=== PATIENT | male | born 1985 | race Caucasian/White ===

== ENCOUNTER 2021-04-29 11:35 | Inpatient (IN) | payer MEDICAID, SELFPAY ==
[2021-04-29 11:41] VITALS: BP 139/84; PULSE 134; RESP 134; O2SAT 95; BMI 27.3
--- NOTE | 2021-04-29 11:46 | ECG_ITS ---
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 Measurements Intervals [place] Rate: 128 P: 60 FL: 132 QRS: 1 QRSD: 83 T: 71 QT: 275 QTc: 402 Interpretive Statements SINUS TACHYCARDIA No previous ECG available for comparison Electronically Signed On 04-29-2021 16:00:30 CDT by Trevor Monreal M.D. [id number]
[2021-04-29] MEDS: LORazepam 2 mg/mL INJ 1 mL IM (11:53)
[2021-04-29] MEDS: nicotine 21 mg Patch 1 PATCH TRANSDERMA (11:53)
[2021-04-29 11:58] VITALS: O2SAT 96
--- NOTE | 2021-04-29 12:00 | W.ED.PSYCH ---
HPI - Psych General: Chief Complaint: Psychiatric Symptoms Stated Complaint: SI; ANXIETY Time Seen by Provider: 04/29/21 11:42 Source: patient and EMS Mode of arrival: EMS History of Present Illness: HPI Narrative: Patient presents with agitation and altered mental status. He was just discharged today from an alcohol drug rehab facility and was found altered by either police or EMS. He is agitated and shaky and tachycardic and diaphoretic and I suspect he likely has some sort of substance on board. He told EMS that he was suicidal and wanted to throw himself in front of a car. He tells me that he is only suicidal because he cannot figure out a way to get home. However he does not know the year or the town that he is in Review of Systems General: Reports: ROS unobtainable due to mental status PFSH ED PFSH: Social History (Updated 04/26/21 @ 11:15 by Lm Carrillo LPN) Smoking and tobacco status: current every day smoker cigarettes Quit status (tobacco): not considering quitting Second hand smoke exposure: Yes Alcohol intake: former Desire information about alcohol rehabilitation?: No Desire information about substance/drug rehabilitation?: No Physical Exam HENMT: COMMON NORMALS: normocephalic HEAD & SCALP: normal to inspection and normocephalic Resp: COMMON NORMALS: normal respiratory effort Cardio: RATE: tachycardic GI: COMMON NORMALS: Normal to inspection, nondistended, normoactive bowel sounds present, Soft to palpation, non-tender, No hepatosplenomegaly present, no masses and no bruits PALPATION: Yes Soft to palpation and Yes No hepatosplenomegaly present Neuro: COMMON NORMALS: CN's II-XII intact bilaterally, moves all extremities, no focal motor deficits and no sensory deficits noted Psych: APPEARANCE: Yes disheveled ATTITUDE: Yes paranoid and Yes uncooperative SPEECH: Yes excessive, Yes loud and Yes Pressured speech present MOOD & AFFECT: Yes anxious THOUGHT PROCESS: disorganized THOUGHT CONTENT: Yes Suicidality present INSIGHT: Poor insight present (Psych) JUDGEMENT: Poor judgement present (Psych) Course Vital Signs: Vital signs: Vital Signs Pulse Rate 65 04/29/21 11:58 Respiratory Rate 19 H 04/29/21 11:58 Blood Pressure 97/54 04/29/21 11:58 Pulse Oximetry 98 05/30/21 11:58 MDM - Psych MDM Narrative: Medical decision making narrative: Patient with acute psychosis and suicidal ideation. Discussed with Dr. Foster. Will admit patient to the psych unit for further evaluation and treatment. Lab Data: Labs: Lab Results 04/29/21 04/29/21 Range/Units 12:40 12:40 WBC 9.4 (4.0-10.0) 10^3/ uL RBC 5.13 (4.1-5.3) 10^6/u L Hgb 15.2 (11.7-16.6) g/dL Hct 44.2 (42.0-52.0) % MCV 86.2 (80-94) fL MCH 29.6 (28.0-34.0) pg MCHC 34.4 (30.0-36.0) g/dL RDW 12.8 (12.1-15.1) % Plt Count 303 (130-400) 10^3/c mm MPV 8.6 (7.4-10.4) fL Neut % (Auto) 66.7 % Lymph % (Auto) 22.0 % Gilliam % (Auto) 6.8 % Eos % (Auto) 3.2 % Baso % (Auto) 0.6 % Neut # (Auto) 6.23 (1.8-7.7) 10^3/u L Lymph # (Auto) 2.1 (0.8-4.8) 10^3/u L Gilliam # (Auto) 0.6 (0.2-0.9) 10^3/u L Eos # (Auto) 0.3 (0.0-0.8) 10^3/u L Baso # (Auto) 0.1 (0.0-0.1) 10^3/u L Nucleated RBC % (a uto) 0 % Nucleated RBCs # 0.0 /100WBC Sodium 138 (136-145) mmol/L Potassium 4.0 (3.5-5.1) mmol/L Chloride 101 (98-107) mmol/L Carbon Dioxide 25 (22-29) mmol/L Anion Gap 16.0 (5-19) BUN 13 (6-20) mg/dL Creatinine 1.0 (0.7-1.2) mg/dL GFR Calculation 84.5 L (90-130) mL/min Glucose 97 (65-115) mg/dL Calculated Osmolal ity 286 (285-295) mOsm/k g Calcium 8.7 (8.5-10.5) mg/dL Total Bilirubin 0.2 (0.15-1.2) mg/dL AST 20 (0-40) U/L ALT 24 (0-41) U/L Alkaline Phosphata se 69 (40-130) IU/L Total Protein 7.0 (6.6-8.7) g/dL Albumin 4.2 (3.5-5.2) g/dL Globulin 2.8 (1.3-4.6) g/dL Salicylates < 0.3 L (3-10) mg/dL Acetaminophen < 5.0 L (10-30) ug/mL Ethyl Alcohol < 10 (0-10) mg/dL Discharge Plan Discharge Prescriptions: No Action amitriptyline 25 mg tablet 25 mg PO DAILY RF: 0 benztropine 1 mg tablet 1 mg PO BID RF: 0 sertraline 50 mg tablet 50 mg PO DAILY RF: 0 sulfamethoxazole-trimethoprim [Bactrim DS] 800-160 mg tablet 1 tab PO BID 7 Days Qty: 14 RF: 0 Coding Level of Care Code ED Blacking Wheel Tender for Chg Fwd Exam Detailed
[2021-04-29 12:54] LABS: Basophils # 0.1 10^3/uL (0.0-0.1); Basophils % 0.6 %; Eosinophils # 0.3 10^3/uL (0.0-0.8); Eosinophils % 3.2 %; Hematocrit 44.2 % (42.0-52.0); Hemoglobin 15.2 g/dL (11.7-16.6); Lymphocytes # 2.1 10^3/uL (0.8-4.8); Mean Corpuscular HGB Conc 34.4 g/dL (30.0-36.0); Mean Corpuscular Hemoglobin 29.6 pg (28.0-34.0); Mean Corpuscular Volume 86.2 fL (80-94); Mean Platelet Volume 8.6 fL (7.4-10.4); Monocytes # 0.6 10^3/uL (0.2-0.9); Monocytes % 6.8 %; Neutrophils # 6.23 10^3/uL (1.8-7.7); Neutrophils % 66.7 %; Nucleated Red Blood Cells % 0 %; Platelet Count 303 10^3/cmm (130-400); Red Blood Count 5.13 10^6/uL (4.1-5.3); Red Cell Distribution Width 12.8 % (12.1-15.1); White Blood Count 9.4 10^3/uL (4.0-10.0)
[2021-04-29 13:21] LABS: Alanine Aminotransferase 24 U/L (0-41); Albumin Level 4.2 g/dL (3.5-5.2); Alkaline Phosphatase 69 IU/L (40-130); Blood Urea Nitrogen 13 mg/dL (6-20); Calcium 8.7 mg/dL (8.5-10.5); Carbon Dioxide 25 mmol/L (22-29); Chloride 101 mmol/L (98-107); Globulin 2.8 g/dL (1.3-4.6); Glomerular Filtration Rate 84.5 mL/min (90-130); Glucose 97 mg/dL (65-115); Osmolality Calculated 286 mOsm/kg (285-295); Sodium 138 mmol/L (136-145); Total Bilirubin 0.2 mg/dL (0.15-1.2)
[2021-04-29 13:30] LABS: Acetaminophen < 5.0 ug/mL (10-30); Alcohol Level < 10 mg/dL (0-10); Salicylate < 0.3 mg/dL (3-10)
[2021-04-29 13:31] LABS: Aspartate Amino Transferase 20 U/L (0-40)
--- NOTE | 2021-04-29 14:07 | PC.PHAR ---
PT WOULDNT WAKE UP TO VERIFY MEDICATIONS-PT BROUGHT IN BLISTER PACKS OF HIS MEDICATION EXCEPT FOR TRAZODONE 100MG AND INVEGA SUSTENNA 234MG/1.5ML FILLED ON 03/28/21
[2021-04-29 15:40] VITALS: BP 127/80; PULSE 88; O2SAT 96
[2021-04-29 15:54] VITALS: BP 135/93; PULSE 102; RESP 14; TEMP 36.5; O2SAT 96
[2021-04-29 20:12] VITALS: BP 133/90; PULSE 102; RESP 18; TEMP 36.4; O2SAT 97
[2021-04-29] MEDS: benztropine 1 mg Tablet PO (20:21)
[2021-04-29] MEDS: amitriptyline 25 mg Tablet PO (20:21)
[2021-04-29] MEDS: sulfamethoxazole-trimeth DS 160-800 mg Tablet 1 TAB PO (20:21)
[2021-04-29] MEDS: trazodone 50 mg Tablet PO (20:21)
--- NOTE | 2021-04-29 20:45 | PC.NURSE ---
pt requested sleep med, Trazodone 50mg po given.
[2021-04-29 21:09] LABS: Add Urine Microscopic? YES; Bilirubin Urine Neg (Negative); Blood Urine Neg (Negative); Glucose Urine UA Norm (Normal); Ketones Urine Negative (Negative); Leukocyte Esterase Urine Negative (Negative); Nitrate Urine Negative (Negative); Protein Urine Neg (Negative); Urine Color Yellow (Yellow); Urobilinogen Urine 1 mg/dL (Negative); pH Urine 7 (5-7)
[2021-04-29 21:13] LABS: Add Urine Culture? No; Amorphous Sediment Urine 4+ /hpf; Bacteria Urine TRACE /hpf; RBC Urine 0-4 /hpf (0-2); Squamous Epithelial Cell Urine 0-4 /hpf (0-5); WBC Urine 0-4 /hpf (0-5)
[2021-04-29 21:28] LABS: Amphetamines Screen Urine Negative (Negative); Barbiturates Screen Urine Negative (Negative); Benzodiazepines Screen Urine Positive (Negative); Cocaine Screen Urine Negative (Negative); Opiate Screen Urine Negative (Negative); PCP Screen Urine Negative (Negative); THC Screen Urine Negative (Negative)
--- NOTE | 2021-04-29 22:18 | PC.NURSE ---
pt in room resting quietly with both eyes closed
[2021-04-30 06:00] VITALS: BP 133/86; PULSE 111; RESP 16; TEMP 37.1; O2SAT 97
[2021-04-30] MEDS: sulfamethoxazole-trimeth DS 160-800 mg Tablet 1 TAB PO (07:32)
[2021-04-30] MEDS: sertraline 50 mg Tablet PO (07:32)
[2021-04-30] MEDS: benztropine 1 mg Tablet PO (07:33)
[2021-04-30] MEDS: OLANZapine 5 mg ODT PO (08:40)
--- NOTE | 2021-04-30 08:43 | PC.NURSE ---
PRN ZYPREXA ZYDIS Patient was punching headboard. Verbal de-escalation by re assuring patient the Psychiatrist would see him at some point today. Given PRN Zyprexa Zydis 5 mg po.
[2021-04-30] MEDS: nicotine 2 mg Gum BUCCAL (08:46)
--- NOTE | 2021-04-30 13:55 | PM.SDS ---
Short Stay Summary Providers Date of Admit/Discharge: 05/21/21 Attending Provider: Suraj Foster MD Chief Complaint: SI; ANXIETY HPI History of Present Illness Stephie Verduzco is a 36 year old male who presented to the emergency department with the following report: Chief Complaint: Psychiatric Symptoms Stated Complaint: SI; ANXIETY Time Seen by Provider: 04/29/21 11:42 Source: patient and EMS Mode of arrival: EMS History of Present Illness: HPI Narrative: Patient presents with agitation and altered mental status. He was just discharged today from an alcohol drug rehab facility and was found altered by either police or EMS. He is agitated and shaky and tachycardic and diaphoretic and I suspect he likely has some sort of substance on board. He told EMS that he was suicidal and wanted to throw himself in front of a car. He tells me that he is only suicidal because he cannot figure out a way to get home. However he does not know the year or the town that he is in. He was admitted to the neuropsychiatric unit for definitive treatment of those issues. He will presented today continuing to feel that being in an inpatient rehab is not suitable for him at this time. He acknowledges that his statement about being suicidal was against the backdrop of wanting and needing to get home having no way to do so. He reports that Aleve was not helpful in helping him deal with the anxiety he had about the circumstance that he was in. He reports that he has resources and services in place back home and we did reach out to his mother who endorsed that he could return and he does have resources in place back there. We reviewed his home medications and administer them here and he denied need for any additional. He endorsed that he feels safe and is able to contract for safety. He reports a long history of addiction and more recent anxiety secondary to not being able to manage his addiction. He reports that he feels optimistic and has continued to be sober for what is weeks now. He denies any need for any changes and denies any significant cravings or concerns for anything other than getting home and establishing himself in his community. Mental status examination: This is a well-nourished well-developed white male in hospital scrubs with adequate grooming and eye contact. No abnormal movements cooperative with exam in no acute distress. Speech was normal rate and volume. Mood described as a little better, affect congruent but anxious. Thought process organized. Thought content: Patient denied suicidal or homicidal ideation, there were no delusions reported noted, she denies any auditory visualizations. Attention and concentration were intact and memory appeared reliable but none were formally tested. He is alert and oriented x3. Insight and judgment appear fair and impulse control appears fair. Assessment and plan: This is a 36-year-old white male with a long history of addiction and mental health issues who presents after leaving an inpatient drug and alcohol program endorsing just wanting to get to his home and get things restarted with his treatment there. 1. Continue current medication. 2. Continue every 15 minute checks for safety. 3. Encourage individual, group and milieu therapies. 4. Encourage sober living treatment after discharge at the highest level of care to which he is willing to commit. Please. Home Meds/Allergies Home Medications and Allergies Home Medications Medication Instructions Recorded Confirmed Type amitriptyline 25 mg tablet 25 mg PO BEDTIME 04/26/21 04/29/21 History benztropine 1 mg tablet 1 mg PO BID 04/26/21 04/29/21 History sertraline 50 mg tablet 50 mg PO DAILY 04/26/21 04/29/21 History Invega Sustenna See Rx Instructions .ROUTE .COMPLEX 04/29/21 04/29/21 History trazodone 100 mg PO BEDTIME 04/29/21 04/29/21 History Allergies Allergy/AdvReac Type Severity Reaction Status Date / Time No Known Allergies Allergy Verified 04/26/21 11:12 PFSH Acute PFSH: Social History (Updated 04/26/21 @ 11:15 by Lm Carrillo LPN) Smoking and tobacco status: current every day smoker cigarettes Quit status (tobacco): not considering quitting Second hand smoke exposure: Yes Alcohol intake: former Desire information about alcohol rehabilitation?: No Desire information about substance/drug rehabilitation?: No Vitals/I&O/Wt Last Vital Signs Temp 98.7 F 04/30/21 06:00 Pulse 111 H 04/30/21 06:00 Resp 16 04/30/21 06:00 BP 133/86 04/30/21 06:00 Pulse Ox 97 04/30/21 06:00 Weight last 48 hrs Weight 83.915 kg Hospital Course Admission Diagnoses Methamphetamine use, depressive disorder unspecified, anxiety disorder unspecified, intellectual disability, and adjustment disorder with mixed disturbance of emotion and conduct. Hospital Course You presented to the emergency department endorsing struggling to adjust any rehab and feeling unsafe as he did not know what to do with a history of intellectual disability and addiction. He was admitted to the neuropsychiatric unit for definitive treatment of those issues. On the unit he became clear that the most pressing issue was homesickness and not adjusting to the inpatient rehab. We continued his current medications and he acclimated to the individual, group and milieu therapies provided. He was assisted in securing a ride home and showed modest improvement able to contract for safety prior to discharge. During the hospitalization, patient had routine laboratory studies which were within normal limits except for few outliers. Additionally there was a general medical evaluation which was also within normal limits and revealed no new acute processes. Discharge Summary At the time of discharge, he denied psychosis or lethality. Mood and anxiety were well managed. Patient endorsed a plan to avoid all drugs of abuse and follow-up with the aftercare recommendations of the treatment team. Patient was evaluated and deemed to be absent credible lethality, and had achieved the maximum benefit from an inpatient hospitalization, so was discharged. Diagnoses at Discharge Discharge Diagnosis (1) Methamphetamine dependence: Status: Acute (2) Depression: Status: Acute (3) Anxiety: Status: Acute (4) Intellectual disability: Status: Acute (5) Adjustment disorder with mixed disturbance of emotions and conduct: Status: Acute Discharge Plan Discharge Patient Disposition: Home Condition: Stable Prescriptions: Continued amitriptyline 25 mg tablet 25 mg PO BEDTIME RF: 0 benztropine 1 mg tablet 1 mg PO BID RF: 0 sertraline 50 mg tablet 50 mg PO DAILY RF: 0 sulfamethoxazole-trimethoprim [Bactrim DS] 800-160 mg tablet 1 tab PO BID 7 Days Qty: 14 RF: 0 trazodone 100 mg tablet 100 mg PO BEDTIME RF: 0 Invega Sustenna 234 mg/1.5 mL syringe See Rx Instructions .ROUTE .COMPLEX RF: 0 Discharge Orders: Discharge Order (Routine); Ordered 04/30/21 Ordered By: Suraj Foster Discharge Diet: Regular Discharge Activity: Resume usual activity Patient Instructions: Generalized Anxiety Disorder (DC), Opioid Safety Attestations Medical Necessity Statement*: Inpatient hospitalization is no longer medically necessary or the clinically appropriate intervention at this time. We will assist him in getting connected with outpatient services, continue his current medication and assist in transportation home. Time Spent in Patient Care*: greater than 30 min Specific Discharge Activities: Specific discharge activities: educating patient, discussing with counter caser/social workers/dc planners, documenting/other paperwork and evaluating patient/reviewing data Quality Metrics Clinical Quality Measures: During this hospital stay, did patient experience: None Coding Level of Care Code Acute Industrial Green Systems Designer for g Fwd Diagnoses Methamphetamine dependence F15.20 Depression F32.9 Anxiety F41.9 Intellectual disability F79 Adjustment disorder with mixed disturbance of emotions and conduct F43.25
[2021-04-30 14:14] VITALS: BP 133/86; PULSE 111; RESP 16; TEMP 37.1; O2SAT 97
--- NOTE | 2021-05-02 16:34 | PC.RESP ---
Smoking Cessation information sent to patient.
== END 2021-04-30 18:25 | disposition home or self-care (01) | DRG 882 ==
LOC: ER 12:54 → NP 15:16
PROVIDERS: Admitting Provider Psychiatry & Neurology Psychiatry; Emergency Provider Emergency Medicine; Visit Provider Psychiatry & Neurology Psychiatry
DX: F43.25 Adjustment disorder with mixed disturbance of emotions and conduct (principal); F15.20 Other stimulant dependence, uncomplicated; F32.9 Major depressive disorder, single episode, unspecified; F41.9 Anxiety disorder, unspecified; F79 Unspecified intellectual disabilities
CPT/HCPCS: 80053; 80306; 80307; 81001; 85025; 93005; 96372; 99285; J2060

== ENCOUNTER 2022-09-12 15:38 | Emergency (ER) | payer MEDICAID, SELFPAY ==
[2022-09-12 15:38] VITALS: BP 170/87; PULSE 115; RESP 24; O2SAT 98
--- NOTE | 2022-09-12 15:47 | W.ED.PSYCHS ---
HPI - Psych General: Chief Complaint: General Medical Stated Complaint: SI/ ANXIETY Time Seen by Provider: 09/12/22 15:39 Source: patient Mode of arrival: EMS History of Present Illness: 37-year-old male presents emergency room chief complaint suicidal ideation and anxiety. Patient had been staying at [facility] to try to go through the program due to methamphetamine abuse he states his last use was 8 days ago. He has a history of depression anxiety with some psychosis he is currently on Invega. He gets a monthly injection. He states that is given him a tremor and when he gets anxious the tremor gets extreme. He wanted to leave the [facility] facility and made the comment that he is here to walk into traffic to kill himself. When asked him if he had any history of previous suicidal ideation he told me that he did not and he was hospitalized here. As the conversation went on he admitted that he is was not really suicidal and he had simply said that because the last time he said he was suicidal he got admitted here and at the time of discharge social security benefits interviewer arranged for him to get a ride back to [facility]. He was to get back cannabis very but does not have a way and reasoned that if he was readmitted here we would make arrangements for him to get another ride home. MD complaint: suicidal ideation History of same: Yes Relieving factors: none Exacerbating factors: none Associated psychiatric symptoms: suicidal ideation Associated symptoms: Deny auditory hallucinations, visual hallucinations, delusions, depression, homicidal ideation, suicidal ideation or racing thoughts Treatments prior to arrival: none If self harm: admits thoughts of self harm and has plan Review of Systems Const: Denies: fever(s), chills, body aches, change in appetite, fatigue or malaise ENMT: Denies: throat pain, ear or mastoid pain, nasal discharge or nasal congestion Card: Denies: chest pain, palpitations, irregular heart rhythm, edema, swelling of feet/ankles, dyspnea on exertion or orthopnea Resp: Denies: dyspnea, productive cough or non-productive cough GI: Denies: abdominal pain, nausea, vomiting, hematemesis, coffee ground emesis, diarrhea, constipation, bloating, hematochezia or melena : Denies: flank pain, dysuria, urinary frequency or urinary urgency Skin/Breast: Denies: rash or pruritus Psych: Denies: depression, visual hallucinations, auditory hallucinations, suicidal ideation or homicidal ideation [facility] ED PFSH: Medical History (Updated 09/12/22 @ 16:53 by Cordell Thayer DO) Adjustment disorder with mixed disturbance of emotions and conduct Anxiety Depression Intellectual disability Methamphetamine dependence Social History Smoking and tobacco status: current every day smoker cigarettes Quit status (tobacco): not considering quitting Second hand smoke exposure: Yes Alcohol intake: former Desire information about alcohol rehabilitation?: No Desire information about substance/drug rehabilitation?: No Physical Exam Const: COMMON NORMALS: no acute distress GENERAL APPEARANCE: cooperative and comfortable ORIENTATION/CONSCIOUSNESS: Yes awake, Yes oriented to person, Yes oriented to place and Yes oriented to time HENMT: COMMON NORMALS: normocephalic, atraumatic and hearing grossly normal bilaterally HEAD & SCALP: normocephalic and atraumatic Resp: COMMON NORMALS: normal respiratory effort, No retractions, No use of accessory muscles and clear to auscultation bilaterally AUSCULTATION: clear to auscultation bilaterally Cardio: COMMON NORMALS: regular rate, regular rhythm and No murmurs present (Cardio) RATE: regular rate RHYTHM: regular rhythm GI: COMMON NORMALS: Soft to palpation and No hepatosplenomegaly present AUSCULTATION: Yes normoactive bowel sounds PALPATION: Yes Soft to palpation, No Tenderness to palpation present (GI), No Guarding due to palpation present (GI) and Yes No hepatosplenomegaly present Extremity: COMMON NORMALS: normal to inspection, capillary refill normal, no clubbing, cyanosis or edema, no calf tenderness and no pedal edema Neuro: SENSORIUM/ORIENTATION: Yes oriented to person, Yes oriented to place and Yes oriented to time OTHER: Tremor at rest improves with distraction per patient driven by anxiety Psych: THOUGHT CONTENT: No delusions Skin: COMMON NORMALS: no rashes or lesions noted GENERAL SKIN EXAM: no rashes or lesions noted Course Vital Signs: Vital signs: Vital Signs Pulse Rate 115 H 09/12/22 15:38 Respiratory Rate 24 H 09/12/22 15:38 Blood Pressure 170/87 09/12/22 15:38 Pulse Oximetry 98 09/12/22 15:38 Oxygen Delivery Me thod 09/12/22 15:38 [facility] - Psych Medical Decision Making Reviewed the case with Dr. Foster. Patient is quite straightforward about the fact the only reason he made the suicidal comments as he wanted to get admitted because he perceived that was how he could get a ride arranged for her to go back home. Case management reviewed his case with his particular version of Medicaid he can get transportation. Patient does not not claiming to be suicidal at this time. Of both Dr. Foster and I agree there is very little be of benefit from admission at this point we will go and discharge him home Case management has made arrangements for him to get a ride from Medicaid transport back home to [facility]. Medical Records I reviewed the patient's medical records. Lab Data I reviewed the patient's lab results. Discharge Plan Discharge Patient Disposition: Home Clinical Impression: Anxiety, Intellectual disability, Methamphetamine dependence Condition: Stable Prescriptions: No Action amitriptyline 25 mg tablet 25 mg PO BEDTIME benztropine 1 mg tablet 1 mg PO QAM sertraline 50 mg tablet 50 mg PO DAILY benztropine 2 mg tablet 2 mg PO BEDTIME Invega Sustenna 234 mg/1.5 mL syringe 234 mg IM Q30D Discharge Orders: Discharge ED (Routine); Ordered 09/12/22 Ordered By: Cordell Thayer Discharge Diet: Usual diet Discharge Activity: Resume usual activity Patient Instructions: Opioid Safety, Pain Management Activity Restrictions/Additional Instructions: Follow-up with your doctor at home within the next 1 to 2 weeks. Coding Level of Care Code ED Erecting Engineer for Megan Fwd Exam Comprehensive
[2022-09-12] MEDS: LORazepam 2 mg Tablet PO (16:20)
--- NOTE | 2022-09-12 16:25 | PC.PHAR ---
Addendum entered by Galilea Verduzco 09/12/22 16:26: PT HAD MEDICATIONS WITH HIM BUT DIDNT WANT US IN HIS BAG Original Note: MEDICATIONS ENTERED ARE MED THAT EXT MED HISTORY SHOWS HAS BEEN FILLED RECENTLY-PER JOSH MCKINNEY FROM [facility] STATES THEY WERE ONLY GIVING THE BENZTROPINE 2MG HS AND 1MG QAM
--- NOTE | 2022-09-13 01:50 | PC.NURSE ---
Pt resting quietly at this time. No needs.
--- NOTE | 2022-09-13 01:53 | PC.NURSE ---
Pt continues to sleep at this time. No issues.
--- NOTE | 2022-09-13 01:55 | PC.NURSE ---
Pt sleeping at this time. NAD
[2022-09-13 06:04] VITALS: BP 165/78; PULSE 98; RESP 18; O2SAT 98
== END 2022-09-13 06:05 | disposition home or self-care (01) ==
PROVIDERS: Emergency Provider Family Medicine
DX: F41.9 Anxiety disorder, unspecified (principal); F15.20 Other stimulant dependence, uncomplicated; F79 Unspecified intellectual disabilities; F17.210 Nicotine dependence, cigarettes, uncomplicated
CPT/HCPCS: 99285